=== PATIENT | female | born 1990 | race Two or more races ===

== ENCOUNTER 2017-02-26 10:53 | Emergency (ER) | payer MEDICAID ==
[~2017-02-26] VITALS: Ht 149.9 cm; Wt 52.2 kg
[2017-02-26 11:59] VITALS: BP 110/77
== END 2017-02-26 14:11 | disposition home or self-care (01) ==
LOC: ER 10:53
DX: O21.9 Vomiting of pregnancy, unspecified (principal); O26.891 Other specified pregnancy related conditions, first trimester; Z3A.01 Less than 8 weeks gestation of pregnancy
CPT/HCPCS: 36415; 84702; 86901